=== PATIENT | female | born 1965 | race Caucasian/White ===

== ENCOUNTER 2017-08-26 14:15 | Emergency (ER) | payer OTHER ==
[~2017-08-26] VITALS: Ht 160 cm; Wt 81.6 kg
--- NOTE | 2017-08-26 16:18 | ED GENERAL ADULT ---
History of Present Illness General Chief Complaint: Neck/Upper Back Pain/Injury Stated Complaint: BACK PAIN X 2 WEEKS Source: patient Exam Limitations: no limitations Vital Signs & Intake/Output Vital Signs & Intake/Output Vital Signs Date Time Temp Pulse Resp B/P B/P Pulse O2 O2 Flow FiO2 Mean Ox Delivery Rate 08/26 1420 98.5 82 20 154/88 96 Room Air Allergies Coded Allergies: lisinopril (THROAT CLOSURE 08/26/17) Reconcile Medications Albuterol Sulfate (Proventil Hfa) 90 MCG HFA.AER.AD 2 PUF INH Q4 cough Aripiprazole (Abilify) 20 MG TABLET 1 TAB PO QAM ANXIETY (Reported) Azithromycin (Zithromax) 250 MG TABLET 1 DP PO AD bronchitis 2 the first day followed by 1 for days 2-5 Benzonatate 200 MG CAPSULE 1 CAP PO TIDPRN cough Celecoxib (Celebrex) 50 MG CAPSULE 1 CAP PO DAILY ARTHRITIS (Reported) Cyclobenzaprine HCl 10 MG TABLET 1 TAB PO TID SPASMS Escitalopram Oxalate (Lexapro) 10 MG TABLET 1 TAB PO DAILY ANXIETY (Reported) Hydroxyzine Hydrochloride (Atarax) 25 MG TAB 1 TAB PO TID RASH (Reported) Ibuprofen 800 MG TABLET 1 TAB PO TID pain Pantoprazole Sodium (Protonix) 40 MG TABLET.DR 1 TAB PO DAILY GERD (Reported) Triage Note: PT TO ED C/O RIGHT UPPER BACK PAIN X 2 WEEKS. DENIES INJURY. TRIED ARTHRITIS MEDS WITH NO RELIEF. PT STATES THE PAIN SHOOTS TO THE LEFT SIDE AT TIMES. Triage Nurses Notes Reviewed? yes Onset: Abrupt Duration: day(s):, constant, continues in ED Timing: recent history Injury Environment: home No Modifying Factors: none HPI: 51-year-old female comes into the emergency room with complaints of back pain it 's been going on for the past few days on the right side. Patient reports that she feels some intermittent tingling to her left arm. She's had some mild shortness of breath with a cough. Denies any fever chills. Denies any vomiting. Past History Travel History Traveled to [place] past 21 day No Medical History Any Pertinent Medical History? see below for history Respiratory: COPD Gastrointestinal: GERD Musculoskeletal: arthritis Psychiatric: depression Surgical History Surgical History: non-contributory Psychosocial History What is your primary language Filipino Tobacco Use: Current Daily Use Daily Tobacco Use Amount/Type: => 5 Cigarettes daily ETOH Use: denies use Illicit Drug Use: marijuana Family History Hx Contributory? No Review of Systems Review of Systems Constitutional: Reports: see HPI. EENTM: Reports: no symptoms. Respiratory: Reports: see HPI. Cardiovascular: Reports: no symptoms. GI: Reports: no symptoms. Genitourinary: Reports: no symptoms. Musculoskeletal: Reports: see HPI. Skin: Reports: no symptoms. Neurological/Psychological: Reports: no symptoms. Hematologic/Endocrine: Reports: no symptoms. Immunologic/Allergic: Reports: no symptoms. All Other Systems: Reviewed and Negative Physical Exam Physical Exam General Appearance: well developed/nourished, alert, awake Head: atraumatic, normal appearance Eyes: Bilateral: normal appearance. Ears, Nose, Throat: normal ENT inspection, hearing grossly normal Neck: normal inspection Respiratory: decreased breath sounds, wheezing Cardiovascular: regular rate/rhythm Gastrointestinal: soft Back: normal inspection Extremities: normal inspection Neurologic/Psych: awake, alert, oriented x 3, normal gait Skin: intact, normal color Core Measures ACS in differential dx? Yes CVA/TIA Diagnosis: No Sepsis Present: No Sepsis Focused Exam Completed? No Progress Differential Diagnoses I considered the following diagnoses in my evaluation of the patient: Bronchitis, pneumonia, muscle strain, intercostal muscle strain, VT, Plan of Care: Orders Procedure Date/time Status D-DIMER 08/26 1711 Complete Add-on Test (ER Only) 08/26 1701 Active TROPONIN LEVEL 08/26 1616 Complete COMPREHENSIVE METABOLIC PANEL 08/26 1616 Complete CBC WITHOUT DIFFERENTIAL 08/26 161 Complete EKG 08/26 1616 Active Laboratory Tests 08/26/17 1711: D-Dimer High Sensitivty < 200 08/26/17 1620: Anion Gap 12, Estimated GFR > 60, BUN/Creatinine Ratio 20.0, Glucose 100 H, Calcium 9.3, Total Bilirubin 0.3, AST 18, ALT 29, Alkaline Phosphatase 114, Troponin I < 0.01, Total Protein 6.9, Albumin 4.2, Globulin 2.7, Albumin/ Globulin Ratio 1.6, CBC w Diff NO MAN DIFF REQ, RBC 4.92, MCV 89.6, MCH 29.7, MCHC 33.2, RDW 14.6 H, MPV 7.8, Gran % 67.7, Lymphocytes % 24.4, Monocytes % 4.9, Eosinophils % 2.6, Basophils % 0.4, Absolute Granulocytes 8.9 H, Absolute Lymphocytes 3.2, Absolute Monocytes 0.6, Absolute Eosinophils 0.3, Absolute Basophils 0.1 Diagnostic Imaging: Viewed by Me: Radiology Read. Discussed w/RAD: Radiology Read. Radiology Impression: PATIENT: JOSE ROBERTO ADAME PRESENT AGE: 51 PATIENT ACCOUNT NO: [id number] : 63 LOCATION: [facility] ORDERING PHYSICIAN: Wilian SWAIN SERVICE DATE: 08/26/17 EXAM TYPE: RAD - XRY-CHEST XRAY, TWO VIEWS EXAMINATION: XR CHEST CLINICAL INFORMATION: Cough, shortness of breath COMPARISON: None TECHNIQUE: 2 views of the chest were obtained. FINDINGS: Lungs are clear. No pulmonary vascular congestion. There is no pleural effusion. The heart size is normal. The cardiac and mediastinal contours are normal. There are calcifications of the thoracic aorta. There are multilevel degenerative changes of dorsal spine. IMPRESSION: Unremarkable examination. 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 <Electronically signed in Other Vendor System> SIGNED BY: Sánchez Valle MD 08/26/171727 Initial ED EKG: normal sinus rhythm, rate (69) Departure Departure Disposition: HOME OR SELF CARE Condition: Stable Clinical Impression Primary Impression: Muscle strain Secondary Impressions: Bronchitis Referrals: Washington Estrada MD (PCP/Family) Additional Instructions: Take ibuprofen, Flexeril, Z-Jarett, albuterol, and Tessalon Perles as prescribed. Follow-up with your primary care doctor. Please go over all results of today's visit with your primary care doctor. Contact your primary care doctor to let them know you were here in the emergency room. There may be nonspecific findings which may not be related to your visit today here in the emergency room but may require further evaluation and chronic monitoring by your primary care doctor. If you had a laceration today the chance of foreign body always remains. You should follow-up with your primary care doctor for recheck in 3-5 days for a wound check. If you had an x-ray done there is a chance that a fracture could have been missed on initial read and you should follow-up with your primary care doctor for repeat x-rays if symptoms persist. If your blood pressure was elevated here in the emergency room please have rechecked by [place] primary care doctor within the next 48. If you were prescribed a narcotic here in the emergency room or any type of controlled substances you're not allowed to drive while taking this medication or operate any type of heavy machinery. Narcotics can make you feel lightheaded dizziness nausea and can cause constipation. You may need to turkey picker a stool softener. Thank you for choosing [facility] emergency room. Please return to the emergency room immediately if you have any other concerns worsening of symptoms. Departure Forms: Customer Survey General Discharge Information Prescriptions: Current Visit Scripts Albuterol Sulfate (Proventil Hfa) 2 PUF INH Q4 #1 INHAL Benzonatate 1 CAP PO TIDPRN #30 CAP Azithromycin (Zithromax) 1 DP PO AD #6 TAB 2 the first day followed by 1 for days 2-5 Ibuprofen 1 TAB PO TID #30 TAB Cyclobenzaprine HCl 1 TAB PO TID #20 TAB Comments 08/26/2017 5:49:24 PM Patient clinically looks well. In no apparent distress. Nontoxic appearing. Back pain is reproducible and worse with range of motion. Denies any fever or chills. No evidence of pneumonia. D-dimer negative. She has no complaints of chest pain. The troponin and EKG were done to rule out any type of atypical VT. Pain is more consistent with muscular pain. I do not feel the patient requires a second EKG and troponin at this time. She can follow up with her PCP. She has some wheezing and rhonchi on exam. Critical Care Note Critical Care Note Critical Care Time: non-applicable
[2017-08-26 16:38] LABS: ABSOLUTE BASOPHIL COUNT 0.1 /CUMM (0.0-0.2); ABSOLUTE EOSINOPHIL COUNT 0.3 /CUMM (0.0-0.7); ABSOLUTE GRANULOCYTE CT 8.9 /CUMM (1.4-6.5); ABSOLUTE LYMPH COUNT 3.2 /CUMM (1.2-3.4); ABSOLUTE MONOCYTE COUNT 0.6 /CUMM (0.10-0.60); BASOPHIL % 0.4 % (0.0-2.0); EOSINOPHIL % 2.6 % (0-5); GRANULOCYTE % 67.7 % (42.2-75.2); MEAN CORPUSCULAR HGB 29.7 PG (27.0-31.0); MEAN CORPUSCULAR HGB CONC 33.2 G/DL (33.0-37.0); MEAN CORPUSCULAR VOLUME 89.6 FL (81.0-99.0); MEAN PLATELET VOLUME 7.8 FL (7.4-10.4); PLATELET COUNT 296 /CUMM (130-400); RBC DISTRIBUTION WIDTH 14.6 % (11.5-14.5); RED BLOOD CELL CT 4.92 /CUMM (4.20-5.40); WHITE BLOOD CELL COUNT 13.2 /CUMM (4.8-10.8)
[2017-08-26] MEDS ORDERED: LEXAPRO10 M1 PO (16:41)
[2017-08-26] MEDS ORDERED: PROTONIX40 M3 PO (16:41)
[2017-08-26] MEDS ORDERED: ABILIFY20 M1 PO (16:42)
[2017-08-26] MEDS ORDERED: CELEBREX50 M1 PO (16:42)
[2017-08-26] MEDS ORDERED: HYDROXYZINE HCL25 M2 PO (16:43)
--- NOTE | 2017-08-26 17:28 | RADIOLOGY REPORT ---
EXAMINATION: XR CHEST CLINICAL INFORMATION: Cough, shortness of breath COMPARISON: None TECHNIQUE: 2 views of the chest were obtained. FINDINGS: Lungs are clear. No pulmonary vascular congestion. There is no pleural effusion. The heart size is normal. The cardiac and mediastinal contours are normal. There are calcifications of the thoracic aorta. There are multilevel degenerative changes of dorsal spine. IMPRESSION: Unremarkable examination.
[2017-08-26] MEDS ORDERED: ZITHROMAX250 M2 PO (17:47)
[2017-08-26] MEDS ORDERED: CYCLOBENZAPRINE10 M1 PO (17:47)
[2017-08-26] MEDS ORDERED: BENZONATATE200 M1 PO (17:47)
[2017-08-26] MEDS ORDERED: IBUPROFEN800 M1 PO (17:47)
[2017-08-26] MEDS ORDERED: PROVENTIL HFA6.7 GM INH (17:47)
[2017-08-26 18:06] VITALS: BP 136/71
== END 2017-08-26 18:07 ==
LOC: ERH 14:15
PROVIDERS: Physician Assistant Medical
DX: S29.012A Strain of muscle and tendon of back wall of thorax, initial encounter (principal); J40 Bronchitis, not specified as acute or chronic; Z72.0 Tobacco use; X58.XXXA Exposure to other specified factors, initial encounter; Y93.9 Activity, unspecified; Y92.9 Unspecified place or not applicable
CPT/HCPCS: 1263; 71046; 93005; 93010